=== PATIENT | male | born 1945 ===

== ENCOUNTER 2017-12-01 17:53 | Inpatient (IN) ==
[2017-12-01] MEDS ORDERED: DEXTROSE 50% 25 GM/50 ML VIAL IV PRN (21:09)
[2017-12-01] MEDS ORDERED: GLUCAGON 1 MG VIAL IM PRN (21:09)
[2017-12-01] MEDS ORDERED: MAGNESIUM SULF RIDER 2 GM in PREMIX 1 EACH IV PRN (21:09)
[2017-12-01] MEDS ORDERED: ACETAMINOPHEN 325 MG TABLET PO PRN (21:09)
[2017-12-01] MEDS ORDERED: MAGNESIUM SULF RIDER 4 GM in PREMIX 1 EACH IV PRN (21:09)
[2017-12-01] MEDS ORDERED: ENOXAPARIN 40 MG/0.4 ML SYRINGE SUBCUT SCH (21:30)
[2017-12-01 23:05] LABS: Calcium 6.9 MG/DL (8.5-10.1); Potassium 5.4 MMOL/L (3.5-5.1); Thyroid Stimulating Hormone 4.71 uIU/ml (0.358-3.74)
[2017-12-02 06:29] LABS: Osmolality,Calculated 311.8 MOS/KG (273-304); Potassium 5.3 MMOL/L (3.5-5.1)
[2017-12-02] MEDS ORDERED: FUROSEMIDE 40 MG/4 ML VIAL IV SCH (08:00)
[2017-12-02] MEDS: ASPIRIN CHEW 81 MG TABLET PO SCH ×2 (08:08→09:29)
[2017-12-02] MEDS ORDERED: SPIRONOLACTONE 25 MG TABLET PO SCH (09:00)
[2017-12-02] MEDS: ISOSORBIDE MONONITRATE 30 MG TABLET PO SCH (09:29)
[2017-12-02] MEDS: metOLazone 5 MG TABLET PO SCH (09:29)
[2017-12-02] MEDS: CALCIUM (CARBONATE)/VITAMIN D 600 MG-400 UNIT TABLET PO SCH ×2 (09:29→21:44)
[2017-12-02] MEDS: FERROUS GLUCONATE 324 MG TABLET PO SCH (09:39)
[2017-12-02] MEDS: FUROSEMIDE 40 MG/4 ML VIAL IV SCH (15:43)
[2017-12-02] MEDS: SIMVASTATIN 40 MG TABLET PO SCH (21:44)
[2017-12-02] MEDS: ENOXAPARIN 30 MG/0.3 ML SYRINGE SUBCUT SCH (21:44)
[2017-12-03 07:15] LABS: Basophils % 0.4 % (0.0-0.8); Eosinophils # 0.3 10*3/uL (0.0-0.87); Eosinophils % 5.3 % (0.00-10.9); Hematocrit 29.2 VOL% (42.0-52.0); Hemoglobin 8.5 GM/DL (14.0-18.0); Immature Granulocytes % 0.7 %; Immature Granulocytes Absolute 0.04 #; Lymphocytes # 0.5 10*3/uL (1.4-4.0); Lymphocytes % 8.7 % (21.2-54.2); Mean Corpuscular HGB Conc 29.1 GM/DL (32-36); Mean Corpuscular Hemoglobin 30 PG (27-34); Mean Corpuscular Volume 102.5 FL (87-102); Mean Platelet Volume 11.8 FL (9.6-12.0); Monocytes # 0.8 10*3/uL (0.11-0.8); Monocytes % 14.6 % (1.7-12.7); Neutrophils # 3.9 10*3/uL (1.4-7.4); Neutrophils % 70.3 % (38.7-73.9); Platelet Count 75 T/CUMM (130-400); Red Blood Count 2.85 MC/CUMM (3.8-5.5); Red Cell Distribution Width 14.6 % (9.3-17.3); White Blood Count 5.6 T/CUMM (4-12)
[2017-12-03 07:26] LABS: Calcium 7.3 MG/DL (8.5-10.1); Osmolality,Calculated 310.8 MOS/KG (273-304); Potassium 5.4 MMOL/L (3.5-5.1)
[2017-12-03 07:38] LABS: Anisocytosis 1+; Band Neutrophils 1 % (0-10); Basophilic Stippling Slight; Eosinophils 3 % (0-10); Lymphocytes 4 % (20-55); Platelet Estimate Decreased; Poikilocytosis Slight; Segmented Neutrophils 80 % (50-85); Total Cells Counted 100
[2017-12-03] MEDS: CALCIUM (CARBONATE)/VITAMIN D 600 MG-400 UNIT TABLET PO SCH ×2 (10:07→21:34)
[2017-12-03] MEDS: metOLazone 5 MG TABLET PO SCH (10:08)
[2017-12-03] MEDS: FERROUS GLUCONATE 324 MG TABLET PO SCH (10:09)
[2017-12-03] MEDS: ASPIRIN EC 81 MG TABLET PO SCH (10:09)
[2017-12-03] MEDS: ISOSORBIDE MONONITRATE 30 MG TABLET PO SCH (10:09)
[2017-12-03] MEDS: FUROSEMIDE 40 MG/4 ML VIAL IV SCH ×2 (10:44→15:53)
[2017-12-03] MEDS: SIMVASTATIN 40 MG TABLET PO SCH (21:34)
[2017-12-03] MEDS: ENOXAPARIN 30 MG/0.3 ML SYRINGE SUBCUT SCH (21:35)
[2017-12-04 06:50] LABS: Basophils % 0.4 % (0.0-0.8); Eosinophils # 0.3 10*3/uL (0.0-0.87); Eosinophils % 5.5 % (0.00-10.9); Hematocrit 28.4 VOL% (42.0-52.0); Hemoglobin 8.4 GM/DL (14.0-18.0); Immature Granulocytes % 0.6 %; Immature Granulocytes Absolute 0.03 #; Lymphocytes # 0.5 10*3/uL (1.4-4.0); Mean Corpuscular HGB Conc 29.6 GM/DL (32-36); Mean Corpuscular Hemoglobin 30 PG (27-34); Mean Corpuscular Volume 101.4 FL (87-102); Mean Platelet Volume 11.7 FL (9.6-12.0); Monocytes # 0.7 10*3/uL (0.11-0.8); Monocytes % 13.7 % (1.7-12.7); Neutrophils # 3.4 10*3/uL (1.4-7.4); Neutrophils % 69.8 % (38.7-73.9); Platelet Count 85 T/CUMM (130-400); Red Cell Distribution Width 14.6 % (9.3-17.3); White Blood Count 4.9 T/CUMM (4-12)
[2017-12-04 07:12] LABS: Ovalocytes Slight
[2017-12-04 07:13] LABS: Macrocytosis Slight; Platelet Estimate Decreased
[2017-12-04 07:14] LABS: Hypochromasia Slight
[2017-12-04 07:23] LABS: Calcium 7.8 MG/DL (8.5-10.1); Osmolality,Calculated 313.8 MOS/KG (273-304); Potassium 5.1 MMOL/L (3.5-5.1)
[2017-12-04] MEDS: ASPIRIN EC 81 MG TABLET PO SCH (08:39)
[2017-12-04] MEDS: FERROUS GLUCONATE 324 MG TABLET PO SCH (08:39)
[2017-12-04] MEDS: ISOSORBIDE MONONITRATE 30 MG TABLET PO SCH (08:40)
[2017-12-04] MEDS: CALCIUM (CARBONATE)/VITAMIN D 600 MG-400 UNIT TABLET PO SCH ×2 (08:40→21:03)
[2017-12-04] MEDS: FUROSEMIDE 40 MG/4 ML VIAL IV SCH ×2 (08:41→16:09)
[2017-12-04] MEDS: CARVEDILOL 3.125 MG TABLET PO SCH ×2 (10:16→21:03)
[2017-12-04] MEDS: SIMVASTATIN 40 MG TABLET PO SCH (21:03)
[2017-12-04] MEDS: ENOXAPARIN 30 MG/0.3 ML SYRINGE SUBCUT SCH (21:03)
[2017-12-05 05:43] LABS: Calcium 7.7 MG/DL (8.5-10.1); Potassium 5.1 MMOL/L (3.5-5.1)
[2017-12-05] MEDS ORDERED: MAGNESIUM HYDROXIDE SUSP 30 ML UDCUP PO PRN (07:57)
[2017-12-05] MEDS: FERROUS GLUCONATE 324 MG TABLET PO SCH (08:52)
[2017-12-05] MEDS: CALCIUM (CARBONATE)/VITAMIN D 600 MG-400 UNIT TABLET PO SCH (08:53)
[2017-12-05] MEDS: FUROSEMIDE 40 MG/4 ML VIAL IV SCH (08:53)
[2017-12-05] MEDS: ISOSORBIDE MONONITRATE 30 MG TABLET PO SCH (08:53)
[2017-12-05] MEDS: CARVEDILOL 3.125 MG TABLET PO SCH (08:53)
[2017-12-05] MEDS: ASPIRIN EC 81 MG TABLET PO SCH (08:53)
[2017-12-05 10:17] VITALS: BP 167/59
[2017-12-05] MEDS ORDERED: INFLUENZA VIRUS VACCINE 0.5 ML SYRINGE IM ONE (11:13)
[2017-12-06] MEDS ORDERED: ERGOCALCIFEROL 50,000 UNIT CAPSULE PO SCH (09:00)
== END 2017-12-05 16:42 | disposition home or self-care (01) | DRG 291 ==
LOC: SUATTDRO 19:30 → N.5E 19:30
PROVIDERS: ADMIT Internal Medicine